=== PATIENT | male | born 1940 | race Caucasian/White ===

== ENCOUNTER 2016-07-19 08:49 | Outpatient (CLI) | payer OTHER ==
[~2016-07-19 08:49] MED LIST: ASPIRIN EC325 MG PO; ASPIRIN EC81 MG PO; BIO-STATIN TOP; CALCIUM600 M1 PO; CERAVE; CLARITIN10 M2 PO; COZAAR25 MG PO; DICYCLOMINE HCL10 MG PO; FLOMAX0.4 MG PO; GLIMEPIRIDE1 MG PO; HYDROCORTISONE2.5 % TOP; LASIX40 MG PO; LEVOTHYROXINE100 MCG PO; MAGNESIUM400 M1 PO; METOPROLOL TART50 MG PO; MULTIVITA; OMEPRAZOLE20 M1 PO; OXYBUTYNIN CHLOR5 MG PO; PIOGLITAZONE HC15 MG PO; PREDNISONE20 MG PO; PROBIOTI1; SIMVASTATIN40 MG PO; TRIAMCINOLONE A0.11 TOP; VITAMIN C500 M1 PO; VITAMIN D-31000 UNIT PO; ZINC SULFATE220 MG PO; [UNRECOGNIZED DRUG - OTHER] TOP
--- NOTE | 2016-07-19 10:32 | DIAGNOSTIC IMAGING REPORT ---
PROCEDURE: XR CHEST 2 VIEW INDICATION: BRONCITIS,ACUTE TECHNIQUE: PA and lateral views. COMPARISON: Chest x-ray 12/30/2014 FINDINGS: Lungs are clear. Heart and mediastinum are of normal size. Dual lead left subclavian pacemaker. There is a 40% old compression fracture one of the mid thoracic vertebral bodies. Thorax is otherwise normal. IMPRESSION: 1. Left subclavian pacemaker. 2. Otherwise negative chest.
== END 2016-07-19 23:00 ==
LOC: XR SRH 08:49
DX: J20.9 Acute bronchitis, unspecified (principal); E11.9 Type 2 diabetes mellitus without complications; I10 Essential (primary) hypertension; Z95.0 Presence of cardiac pacemaker